=== PATIENT | female | born 1970 | race Caucasian/White ===

== ENCOUNTER 2021-07-23 00:03 | Emergency (ER) | payer OTHER ==
[~2021-07-23] VITALS: Ht 162.6 cm; Wt 78.0 kg
[~2021-07-23 00:03] MED LIST: CIPR-262 PO; FEXO30TA7 PO; FLUT16SP2 NS
--- NOTE | 2021-07-23 00:45 | NUR ---
TO ER BED 4. BIBS C/O R CALF PAIN X 5 DAYS, - SWELLING OR REDNESS. CHANGED INTO GOWN. CONNECTED TO MONITOR. AWAITING MD MARCOS
[2021-07-23] MEDS ORDERED: IBUPROFEN 400 MG TABLET ONE (01:08)
[2021-07-23] MEDS ORDERED: IBUPROFEN 400 MG TABLET PO ONE (01:30)
--- NOTE | 2021-07-23 01:30 | NUR ---
ULTRASOUND AT BEDSIDE
[2021-07-23 04:18] VITALS: BP 122/98
--- NOTE | 2021-07-23 04:22 | NUR ---
Patient discharged to home in stable condition. Written and verbal after care instructions given. Patient verbalizes understanding of instruction.
== END 2021-07-23 04:23 | disposition home or self-care (01) ==
LOC: ER 00:13
DX: M79.661 Pain in right lower leg (principal); M79.18 Myalgia, other site; Z71.1 Person with feared health complaint in whom no diagnosis is made; I10 Essential (primary) hypertension; Z98.890 Other specified postprocedural states; Z79.899 Other long term (current) drug therapy
CPT/HCPCS: 93971-TC